=== PATIENT | male | born 1945 | race Two or more races ===

== ENCOUNTER 2017-04-20 10:32 | Outpatient (CLI) | payer OTHER | END 2017-04-20 11:28 | disposition home or self-care (01) | LOC: RAD 501 10:32 | DX: M15.8 Other polyosteoarthritis (principal); M05.79 Rheumatoid arthritis with rheumatoid factor of multiple sites without organ or systems involvement; M54.16 Radiculopathy, lumbar region; M70.61 Trochanteric bursitis, right hip; M70.62 Trochanteric bursitis, left hip ==